=== PATIENT | female | born 1945 | race Caucasian/White ===

== ENCOUNTER → 2016-10-23 | Outpatient (CLI) | payer OTHER ==
--- NOTE | ~2016-10-23 | EKG ---
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
== END ==
LOC: CV 11:09
DX: Z01.818 Encounter for other preprocedural examination (principal); I10 Essential (primary) hypertension